=== PATIENT | male | born 1995 | race Caucasian/White ===

== ENCOUNTER 2024-08-27 20:27 | Emergency (ER) | payer OTHER ==
[2024-08-27 20:41] VITALS: RESP 18
--- NOTE | 2024-08-27 21:13 | ED ---
Extremity Problem HPI - General Source: patient Mode of arrival: wheelchair Limitations: no limitations <Xiomy Allen - Last Filed: 08/27/24 21:13> - General Source: patient, RN notes reviewed, old records reviewed Mode of arrival: wheelchair Limitations: no limitations - History of Present Illness -: hour(s) Location: left, upper extremity History of Same: Yes Radiation: proximal, distal Consistency: constant Improves with: nothing Worsens with: nothing <Alberto Martin - Last Filed: 08/27/24 23:24> - General Chief complaint: Extremity Problem,Nontraumatic Stated complaint: L Arm Pain Time Seen by Provider: 08/27/24 21:13 - History of Present Illness Initial comments: 29-year-old male having pain in the left arm. Starts in his shoulder and goes down to about his mid forearm. Started 2 hours ago. Denies injury or trauma. He does admit to some numbness and tingling in the arm. No chest pain or difficulty breathing. States that it feels a bit swollen. (Xiomy Allen) This is a 29-year-old male to the ER for evaluation of left arm pain. Patient does have history of drug abuse, presents today for difficulty moving left forearm and moving arm in general. Arm is mildly swollen numbness tingling throughout the arm and initially started with difficulty with moving his hand (Alberto Martin) - Related Data Allergies Allergy/AdvReac Type Severity Reaction Status Date / Time No Known Allergies Allergy Verified 08/27/24 20:41 Review of Systems ROS Other: All systems not noted in ROS Statement are negative. <Xiomy Allen - Last Filed: 08/27/24 21:13> ROS Other: All systems not noted in ROS Statement are negative. <Alberto Martin - Last Filed: 08/27/24 23:24> ROS Statement: Those systems with pertinent positive or pertinent negative responses have been documented in the HPI. Past Medical History Past Medical History: No Reported History History of Any Multi-Drug Resistant Organisms: None Reported Past Surgical History: No Surgical Hx Reported Past Psychological History: Anxiety, Bipolar, Depression Smoking Status: Current every day smoker Past Alcohol Use History: None Reported Past Drug Use History: Marijuana <Xiomy Allen - Last Filed: 08/27/24 21:13> General Exam Limitations: no limitations <Xiomy Allen - Last Filed: 08/27/24 21:13> General appearance: alert, in no apparent distress Head exam: Present: atraumatic, normocephalic, normal inspection Eye exam: Present: normal appearance, PERRL, EOMI. Absent: scleral icterus, conjunctival injection, periorbital swelling ENT exam: Present: normal exam, mucous membranes moist Neck exam: Present: normal inspection. Absent: tenderness, meningismus, lymphadenopathy Respiratory exam: Present: normal lung sounds bilaterally. Absent: respiratory distress, wheezes, rales, rhonchi, stridor Cardiovascular Exam: Present: regular rate, normal rhythm, normal heart sounds. Absent: systolic murmur, diastolic murmur, rubs, gallop, clicks GI/Abdominal exam: Present: soft, normal bowel sounds. Absent: distended, tenderness, guarding, rebound, rigid Extremities exam: Present: normal inspection, full ROM, normal capillary refill. Absent: tenderness, pedal edema, joint swelling, calf tenderness Back exam: Present: normal inspection Neurological exam: Present: alert, oriented X3, CN II-XII intact Psychiatric exam: Present: normal affect, normal mood Skin exam: Present: warm, dry, intact, normal color. Absent: rash <Alberto Martin - Last Filed: 08/27/24 23:24> - General Exam Comments Initial Comments: Visual Physical Exam Vital signs reviewed General: Well-appearing, nontoxic, no acute distress. Head: Normocephalic, atraumatic Eyes: PERRLA, EOMI ENT: Airway patent Chest: Nonlabored breathing Skin: No visual rash, normal skin tone Neuro: Alert and oriented 3 Musculoskeletal: No gross abnormalities (Xiomy Allen) Peripheral nerve palsy radial nerve palsy of the left upper extremity (Alberto Martin) Course <Alberto Martin - Last Filed: 08/27/24 23:24> Vital Signs 08/27/24 20:35 Temperature 98.1 F Pulse Rate 94 Respiratory 18 Rate Blood Pressure 96/63 O2 Sat by Pulse 98 Oximetry - Reevaluation(s) Reevaluation #1: 08/27/24 23:23 Medical records reviewed (Alberto Martin) Reevaluation #2: 08/27/24 23:23 Patient symptoms are unchanged (Alberto Martin) Reevaluation #3: 08/27/24 23:23 20 results questions answered (Alberto Martin) Reevaluation #4: Was pt. sent in by a medical professional or institution (DAKOTA Hancock, TOURING PRODUCTION MANAGER, urgent care, hospital, or assisted...) When possible be specific @ -no Did you speak to anyone other than the patient for history (EMS, parent, family, police, friend...)? What history was obtained from this source @ -no Did you review nursing and triage notes (agree or disagree)? Why? @ -agree Are old charts reviewed (outside hosp., previous admission, EMS record, old EKG, old radiological studies, urgent care reports/EKG's, assisted records)? Report findings @ -yes Differential Diagnosis (chest pain, altered mental status, abdominal pain women, abdominal pain men, vaginal bleeding, weakness, fever, dyspnea, syncope, headache, dizziness, GI bleed, back pain, seizure, CVA, palpatations, mental health, musculoskeletal)? @ -prior EKG interpreted by me (3pts min.). @ -yes X-rays interpreted by me (1pt min.). @ -yes negative for acute disease CT interpreted by me (1pt min.). @ -no U/S interpreted by me (1pt. min.). @ -no What testing was considered but not performed or refused? (CT, X-rays, U/S, labs)? Why? @ -none What meds were considered but not given or refused? Why? @ -none Did you discuss the management of the patient with other professionals (professionals i.e. DAKOTA Hancock, TOURING PRODUCTION MANAGER, lab, RT, psych nurse, social worker health services, plastic tile setter, teacher, sales officer, bilingual case manager)? Give summary @ -no Was smoking cessation discussed for >3mins.? @ -no Was critical care preformed (if so, how long)? @ -no Were there social determinants of health that impacted care today? How? (Homelessness, low income, unemployed, alcoholism, drug addiction, transportation, low edu. Level, literacy, decrease access to med. care, senior care, rehab)? @ -none Was there de-escalation of care discussed even if they declined (Discuss DNR or withdrawal of care, Hospice)? DNR status @ -no What co-morbidities impacted this encounter? (DM, HTN, Smoking, COPD, CAD, Cancer, CVA, ARF, Chemo, Hep., AIDS, mental health diagnosis, sleep apnea, morbid obesity)? @ -none Was patient admitted / discharged? Hospital course, mention meds given and route, prescriptions, significant lab abnormalities, going to OR and other pertinent info. @ - Undiagnosed new problem with uncertain prognosis? @ -no Drug Therapy requiring intensive monitoring for toxicity (Heparin, Nitro, Insulin, Cardizem)? @ -no Were any procedures done? @ -no Diagnosis/symptom? @ - Acute, or Chronic, or Acute on Chronic? @ -Acute Uncomplicated (without systemic symptoms) or Complicated (systemic symptoms)? @ -Complicated Side effects of treatment? @ -no Exacerbation, Progression, or Severe Exacerbation? @ -exacerbation Poses a threat to life or bodily function? How? (Chest pain, [place], [place], pneumonia, PE, COPD, DKA, ARF, appy, cholecystitis, CVA, Diverticulitis, Homicidal, Scott icidal, threat to staff... and all critical care pts) @ -yes (Alberto Martin) Reevaluation #5: Differential CVA Ischemic stroke, hemorrhagic stroke, brain tumor, atypical migraine, Wernicke's encephalopathy, seizure, multiple sclerosis, meningitis, encephalitis, hypoglycemia, Guillain-August, electrolytes disturbance, myasthenia gravis.... This is not meant to be an all-inclusive list (Alberto Martin) Medical Decision Making <Xiomy Allen - Last Filed: 08/27/24 21:13> - Radiology Data Radiology results: report reviewed (Ultrasound x-ray left upper extremity negative for acute disease), image reviewed <Alberto Martin - Last Filed: 08/27/24 23:24> - Medical Decision Making I performed the quick note portion of this visit, electronically signed Xiomy Allen PA-C (Xiomy Allen) 29 male to the ER for evaluation patient will be discharged home peripheral nerve palsy palsy, Tuesday night palsy (Alberto Martin) Disposition <Xiomy Allen - Last Filed: 08/27/24 21:13> Is patient prescribed a controlled substance at d/c from ED?: No Time of Disposition: 23:00 <Alberto Martin - Last Filed: 08/27/24 23:24> Clinical Impression: Erb's palsy, Tuesday night palsy Disposition: HOME SELF-CARE Condition: Good Instructions (If sedation given, give patient instructions): Radial Nerve Palsy (ED) Referrals: None,Stated [Primary Care Provider] - 1-2 days
--- NOTE | 2024-08-27 22:54 | US ---
EXAMINATION TYPE: US venous doppler duplex UE LT DATE OF EXAM: 08/27/2024 COMPARISON: NONE CLINICAL INDICATION: Male, 29 years old with history of pain; states arm pain and numbness. no hx dvt . not on thinners. no swelling TECHNIQUE: Grayscale, color Doppler and spectral Doppler imaging of the upper extremity. SIDE PERFORMED: left VESSELS IMAGED: IJV Subclavian Vein Axilla Vein Brachial Vein(s) Radial Paired Veins Ulnar Paired Veins Cephalic Vein* Basilic Vein* (*superficial vessels) FINDINGS: Left Arm: Appears negative for dvt Grayscale, color doppler, spectral doppler imaging performed of the deep veins of the upper extremiti es. IMPRESSION: No evidence for DVT of the left upper extremity. [facility], , 08/27/2024 10:52 PM
--- NOTE | 2024-08-27 22:59 | XR ---
EXAMINATION TYPE: XR humerus LT DATE OF EXAM: 08/27/2024 10:02 PM CLINICAL INDICATION:Male, 29 years old with history of pain; PHH, pain COMPARISON: DVT study of the left upper extremity from the same day. TECHNIQUE: XR humerus LT examined in frontal and lateral projections. FINDINGS: No evidence of acute osseous pathology, joint dislocation, or significant soft tissue swell ing. The remaining portions of the visualized chest are unremarkable. No radiopaque foreign bodies. IMPRESSION: No acute osseous pathology. [facility], , 08/27/2024 10:57 PM
[2024-08-28 00:04] VITALS: BP 109/73; PULSE 114; TEMP 98.2
[2024-08-28] MEDS: KETOROLAC 15 MG/ML 1 ML VIAL IM STA (00:08)
== END 2024-08-28 00:10 | disposition home or self-care (01) ==
LOC: EC 20:27
DX: G56.32 Lesion of radial nerve, left upper limb (principal); F17.200 Nicotine dependence, unspecified, uncomplicated
CPT/HCPCS: 96372; 99284